=== PATIENT | male | born 1985 | race Caucasian/White ===

== ENCOUNTER 2018-09-28 14:42 | Emergency (ER) | payer SELFPAY ==
--- NOTE | 2018-09-28 15:26 | RAD ---
CHEST 2 VIEWS: Date: 09/28/18 HISTORY: Cough, congestion, and fever. FINDINGS: Heart size is within normal limits. There is some very minute linear vertically oriented streaky pare nchymal changes in the right medial lower lobe, but no evidence for confluent pneumonia. No significa nt pleural effusion. Slight hyperinflation. IMPRESSION: Slight hyperinflation. Small linear vertically oriented focus in the right medial lower lobe possibly a small focus of subsegmental atelectasis, scarring, or, less likely, very mild nonspecific pneumoni tis. No new confluent process. POS: [facility]
[2018-09-28] MEDS ORDERED: predniSONE 20 MG TAB ONE (15:44)
== END 2018-09-28 16:26 | disposition home or self-care (01) ==
LOC: ERS 14:42
DX: J45.901 Unspecified asthma with (acute) exacerbation (principal); Z71.6 Tobacco abuse counseling; F17.210 Nicotine dependence, cigarettes, uncomplicated
CPT/HCPCS: 71046; 87804; 94640; 99406; J7620

== ENCOUNTER 2019-06-19 14:56 | Emergency (ER) | payer SELFPAY ==
[2019-06-19] MEDS ORDERED: Ondansetron ODT 4 MG TAB ONE (15:36)
== END 2019-06-19 16:53 | disposition home or self-care (01) ==
LOC: ERS 14:56
DX: R05 Cough (principal); R11.0 Nausea; J45.909 Unspecified asthma, uncomplicated; F17.210 Nicotine dependence, cigarettes, uncomplicated
CPT/HCPCS: 99283; Q0162